=== PATIENT | male | born 1965 | race African-American/Black ===

== ENCOUNTER 2018-08-09 20:55 | Emergency (ER) | payer BC ==
[2018-08-09] MEDS ORDERED: TORADOL ONE (21:15)
[2018-08-09] MEDS ORDERED: TORADOL IV ONE (21:19)
[2018-08-09 21:28] LABS: Basophils # (Auto) 0.1 K/mm3 (0.0-0.1); Basophils % (Auto) 0.7 % (0.0-1.8); Eosinophils # (Auto) 0.1 K/mm3 (0.0-0.4); Eosinophils % (Auto) 0.6 % (0.0-4.3); Hematocrit 46.4 % (35.5-45.6); Hemoglobin 15.8 gm/dl (11.8-15.2); Lymphocytes # (Auto) 2.9 K/mm3 (1.2-5.4); Lymphocytes % (Auto) 21.5 % (13.4-35.0); Mean Corpuscular HGB Conc 34 % (32-34); Mean Corpuscular Volume 92 fl (84-94); Monocytes # (Auto) 1.3 K/mm3 (0.0-0.8); Monocytes % (Auto) 9.7 % (0.0-7.3); Platelet Count 279 K/mm3 (140-440); Red Blood Count 5.03 M/mm3 (3.65-5.03); Red Cell Distribution Width 13.8 % (13.2-15.2)
[2018-08-09 21:49] LABS: Alanine Aminotransferase 17 units/L (7-56); Albumin 4.3 g/dL (3.9-5); BUN/Creatinine Ratio 16; Blood Urea Nitrogen 14 mg/dL (9-20); Calcium 9.2 mg/dL (8.4-10.2); Hemolysis Index 9
[2018-08-09 22:04] LABS: Bacteria,Urine 1+ /HPF (Negative); Bilirubin,Urine NEG (Negative); Blood,Urine SM (Negative); Color,Urine Yellow (Yellow); Mucus,Urine FEW /HPF; Urobilinogen,Urine < 2.0 mg/dL (<2.0)
--- NOTE | 2018-08-09 22:08 | Emergency Department Report ---
ED Abdominal Pain HPI - General Chief Complaint: Abdominal Pain Stated Complaint: PAIN ON LT SIDE OF BACK Time Seen by Provider: 08/09/18 21:45 Source: patient Mode of arrival: Ambulatory Limitations: Language Barrier - History of Present Illness Initial Comments: 53-year-old male comes in for left flank pain that radiates to the front left abdomen 30 minutes. Patient reports that it hurts to urinate. Patient reports he has a past medical history of appendectomy. Patient reports after having pain medication his pain a 4 out of 10. Patient denies any nausea vomiting. MD Complaint: flank pain -: This evening Location: L flank Radiation: suprapubic Severity: severe Severity scale (0 -10): 10 Quality: sharp Consistency: constant Improves With: medication Worsens With: nothing - Related Data Previous Rx's Medication Instructions Recorded Last Taken Type HYDROcodone/ACETAMINOPHEN [Yoder 1 each PO Q4H PRN #12 tablet 08/10/18 Unknown R x 7.5-325 Tablet] Ibuprofen [Motrin 600 MG tab] 600 mg PO Q8H PRN #30 tablet 08/10/18 Unknown Rx Sulfamethoxazole/Trimethoprim 1 each PO BID #20 tablet 08/10/18 Unknown Rx [Bactrim DS TAB] Tamsulosin HCl [Flomax] 0.4 mg PO QDAY 5 Days #5 cap.er.24h 08/10/18 Unknown Rx Allergies Allergy/AdvReac Type Severity Reaction Status Date / Time No Known Allergies Allergy Unverified 08/09/18 20:59 ED Review of Systems ROS: Stated complaint: PAIN ON LT SIDE OF BACK Other details as noted in HPI Comment: All other systems reviewed and negative Constitutional: denies: chills, fever Eyes: denies: eye pain, eye discharge, vision change ENT: denies: ear pain, throat pain Respiratory: denies: cough, shortness of breath, wheezing Cardiovascular: denies: chest pain, palpitations Endocrine: no symptoms reported Gastrointestinal: abdominal pain Genitourinary: urgency, dysuria Musculoskeletal: denies: back pain, joint swelling, arthralgia Skin: denies: rash, lesions Neurological: denies: headache, weakness, paresthesias Psychiatric: denies: anxiety, depression Hematological/Lymphatic: denies: easy bleeding, easy bruising ED Past Medical Hx - Past Medical History Previous Medical History?: No - Surgical History Past Surgical History?: Yes Hx Appendectomy: Yes - Social History Smoking Status: Current Every Day Smoker Substance Use Type: Alcohol - Medications Home Medications: Home Medications Medication Instructions Recorded Confirmed Last Taken Type HYDROcodone/ACETAMINOPHEN [Yoder 1 each PO Q4H PRN #12 tablet 08/10/18 Unknown Rx 7.5-325 Tablet] Ibuprofen [Motrin 600 MG tab] 600 mg PO Q8H PRN #30 tablet 08/10/18 Unknown Rx Sulfamethoxazole/Trimethoprim 1 each PO BID #20 tablet 08/10/18 Unknown Rx [Bactrim DS TAB] Tamsulosin HCl [Flomax] 0.4 mg PO QDAY 5 Days #5 cap.er.24h 08/10/18 Unknown Rx ED Physical Exam - General Limitations: Language Barrier General appearance: alert, in no apparent distress - Head Head exam: Present: atraumatic, normocephalic - Eye Eye exam: Present: EOMI - ENT ENT exam: Present: mucous membranes moist - Neck Neck exam: Present: normal inspection - Respiratory Respiratory exam: Present: normal lung sounds bilaterally. Absent: respiratory distress - Cardiovascular Cardiovascular Exam: Present: regular rate, normal rhythm. Absent: systolic murmur, diastolic murmur, rubs, gallop - GI/Abdominal GI/Abdominal exam: Present: soft. Absent: distended, tenderness - Rectal Rectal exam: Present: deferred - Extremities Exam Extremities exam: Present: normal inspection - Back Exam Back exam: Present: CVA tenderness (L) - Neurological Exam Neurological exam: Present: alert, oriented X3 - Psychiatric Psychiatric exam: Present: normal affect, normal mood - Skin Skin exam: Present: warm, dry, intact, normal color. Absent: rash ED Medical Decision Making - Lab Data Result diagrams: 08/09/18 21:12 08/09/18 21:12 - Radiology Data Radiology results: report reviewed FINAL REPORT PROCEDURE: CT ABDOMEN PELVIS WO CON TECHNIQUE: Computerized axial tomography of the abdomen and pelvis was performed without intravenous contrast. This study is performed without intravascular contrast material and its sensitivity for abdominal and pelvic pathology, including neoplasms, inflammation, abscess, free fluid, thrombosis, arterial dissection and infarction, is reduced compared with a contrast enhanced study. HISTORY: flank and abd pain COMPARISON: No prior studies are available for comparison. FINDINGS: Liver, spleen, pancreas and adrenal glands are within normal limits. Bilateral kidneys demonstrate normal density without calculi. There is 4.5 millimeter calculus at the left vesicoureteral junction with the mild degree left hydronephrosis and hydroureter. Right kidney is unremarkable. Urinary bladder is minimally filled with normal outlines. Aorta is of normal caliber. There is no free fluid or free air. Gallbladder is unremarkable. Small bowel loops are within normal limits. Appendix is not distinctly visualized. There are no inflammatory changes in the right lower quadrant. Vertebral height is normal. Moderate degree facet degenerative changes are noted involving the lower lumbar spine. IMPRESSION: 4.5 millimeter obstructive calculus left vesicoureteral junction with mild degree obstructive uropathy.. Transcribed By: [facility] [place] [facility] [place] Dictated By: KAROL LEDESMA Electronically Authenticated By: KAROL LEDESMA Signed Date/Time: 08/09/182215 DD/ 16 TD/TT: 08/09/182216 - Medical Decision Making Patient has been evaluated by this provider. Patient denies IV insertion with Toradol given in triage. Urinalysis CBC and CMP as well as CT without contrast of the abdomen and pelvis. CT of abdomen and pelvis shows a 4.5 mm kidney calculus that is obstructing the VCJ. Patient reports pain for 10. Patient was given IV fluids [address] 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 Critical care attestation.: If time is entered above; I have spent that time in minutes in the direct care of this critically ill patient, excluding procedure time. ED Disposition Clinical Impression: Calculus of left kidney Disposition: TO HOME OR SELFCARE Is pt being admited?: No Does the pt Need Aspirin: No Condition: Stable Instructions: Kidney Stones (ED), How to Strain Your Urine (ED), Flank Pain (ED), Sulfamethoxazole/Trimethoprim (By mouth) Additional Instructions: Please complete antibiotics as prescribed. Please take Flomax as prescribed. He can take pain medication as needed. Please increase her water intake by 2-3 L a day. It's very importantly to follow up with the urologist I have listed his inflammation below for your convenience. Prescriptions: HYDROcodone/ACETAMINOPHEN [Yoder 7.5-325 Tablet] 1 each PO Q4H PRN #12 tablet PRN Reason: Pain , Severe (7-10) Ibuprofen [Motrin 600 MG tab] 600 mg PO Q8H PRN #30 tablet PRN Reason: Pain Sulfamethoxazole/Trimethoprim [Bactrim DS TAB] 1 each PO BID #20 tablet Tamsulosin HCl [Flomax] 0.4 mg PO QDAY 5 Days #5 cap.er.24h Referrals: PRIMARY [facility]EM[facility] [Referring] - 3-5 Days JORDYN CARDONA MD [Staff Physician] - 3-5 Days Forms: Work/School Release Form(ED)
[2018-08-09 22:11] LABS: WBC,Urine < 1.0 /HPF (0.0-6.0)
--- NOTE | 2018-08-09 22:16 | Cat Scan Report ---
FINAL REPORT PROCEDURE: CT ABDOMEN PELVIS WO CON TECHNIQUE: Computerized axial tomography of the abdomen and pelvis was performed without intravenous contrast. This study is performed without intravascular contrast material and its sensitivity for ab dominal and pelvic pathology, including neoplasms, inflammation, abscess, free fluid, thrombosis, art erial dissection and infarction, is reduced compared with a contrast enhanced study. HISTORY: flank and abd pain COMPARISON: No prior studies are available for comparison. FINDINGS: Liver, spleen, pancreas and adrenal glands are within normal limits. Bilateral kidneys demonstrate no rmal density without calculi. There is 4.5 millimeter calculus at the left vesicoureteral junction wi th the mild degree left hydronephrosis and hydroureter. Right kidney is unremarkable. Urinary bladder is minimally filled with normal outlines. Aorta is of normal caliber. There is no free fluid or free air. Gallbladder is unremarkable. Small bowel loops are within normal limits. Appendix is not distin ctly visualized. There are no inflammatory changes in the right lower quadrant. Vertebral height is n ormal. Moderate degree facet degenerative changes are noted involving the lower lumbar spine. IMPRESSION: 4.5 millimeter obstructive calculus left vesicoureteral junction with mild degree obstructive uropath y..
[2018-08-09] MEDS ORDERED: NACL 0.9% 1000 ML 1,000 ML IV ONE (22:59)
[2018-08-10 01:38] VITALS: BP 119/74
== END 2018-08-10 01:37 | disposition home or self-care (01) ==
LOC: ED 20:55
DX: N20.0 Calculus of kidney (principal); F17.200 Nicotine dependence, unspecified, uncomplicated; Z90.49 Acquired absence of other specified parts of digestive tract
CPT/HCPCS: 36415; 74176; 80053; 81001; 85025; 96374; 99284; J1885; J7030